=== PATIENT | female | born 1965 ===

== ENCOUNTER 2018-12-19 12:05 | Emergency (ER) | payer OTHER ==
--- NOTE | 2018-12-19 12:23 | EDM.PDOC ---
ED HPI GENERAL MEDICAL PROBLEM - General Stated Complaint: EXPOSURE Time Seen by Provider: 12/19/18 12:16 Source of Information: Reports: Patient, EMS History Limitations: Reports: Altered Mental Status - History of Present Illness INITIAL COMMENTS - FREE TEXT/NARRATIVE: pt [place] by low enforcement , after she was found there by a stranger wondering barefooted in mud , on arrival pt is alert and oriented but appear in consistent and at times delusional and agitated, pt is states that she is from the [facility] and was heading to [place] as she got car trouble in our area, she left her car and went walking to try to get help, states since last night she has been wondering around to find help but was unsuccessful, she is not sure why she is barefooted, denies loss of conscious or any assault or injuries, pt has expressed to law enforcement that she is running away from an evil person and here she has repeatedly spoke about demeans speaking to her and controlling her. pt c/o bilateral feet pain and denies any other associated sx. pt denies any significant morbidities including any mental illness, states she has been living by her self for 25 years and that she has never been employed. pt denies any drug or alcohol use. - Related Data Allergies Allergy/AdvReac Type Severity Reaction Status Date / Time hydromorphone [From Dilaudid] Allergy Cannot Verified 12/19/18 13:59 Remember paroxetine Allergy Cannot Verified 12/19/18 13:59 Remember Sulfa (Sulfonamide Allergy Cannot Verified 12/19/18 13:59 Antibiotics) Remember ED ROS GENERAL - Review of Systems Review Of Systems: See Below Constitutional: Denies: Fever, Chills HEENT: Reports: No Symptoms Respiratory: Reports: No Symptoms Cardiovascular: Reports: No Symptoms GI/Abdominal: Reports: No Symptoms Musculoskeletal: Reports: Other (feet pain). Denies: Neck Pain, Muscle Stiffness Skin: Reports: No Symptoms Neurological: Reports: No Symptoms Psychiatric: Reports: Confusion ED EXAM, GENERAL - Physical Exam Exam: See Below Exam Limited By: Altered Mental Status General Appearance: Alert, Mild Distress, Moderate Distress Eye Exam: Bilateral Eye: Normal Inspection Ear Exam: Bilateral Ear: TM normal Nose: Normal Inspection, Normal Mucosa Throat/Mouth: Normal Inspection, Normal Oropharynx Head: Atraumatic, Normocephalic Neck: Normal Inspection, Supple, Non-Tender Respiratory/Chest: No Respiratory Distress, Lungs Clear Cardiovascular: Normal Peripheral Pulses, Regular Rate, Rhythm, No Murmur GI/Abdominal: Normal Bowel Sounds, Soft, Non-Tender Back Exam: Normal Inspection Extremities: Other (feet/ legs are very dirty / muddy and cold, Cap refil time at her feet/ toes is still nl . there is a 1X2 cm spot at planter side of left foot that apear erythematic and likely secondary to frostbite. ) Neurological: Alert, CN II-XII Intact Skin Exam: Cool. No: Cyanosis Course - Vital Signs Text/Narrative:: vitals/ temp are stable/nl since presentation, pt remained cooperative here for the most part , but continued with delusions and occasional bursts of anger on staff , no medical or physical intervention was needed. she was hydrated with warm fluids and provided with warm blankets on arrival. pt is experiencing acute episode of psychosis , i do not find her in any way safe for discharge or out-patient mng , no family and no support that is available at this time. hence a hold was signed , and mental health are being contacted for placement. labs were reviewed and are unremarkable except for mild elevation with her WBC , there are no signs of any overt infectious process at this time. pt has a very mild nair bite injury at planter side of left foot and supportive mng was recommended for this. Nurses note were reviewed. pt care will be handed to Dr Chavis at time of shift change while still awaiting placement. - Orders/Labs/Meds Orders: Active Orders 24 hr Category Date Time Status EKG Documentation Completion [RC] ASDIRECTED Care 12/19/18 12:30 Active Sodium Chloride 0.9% [Normal Saline] 1,000 ml Med 12/19/18 12:29 Active IV .BOLUS Sodium Chloride 0.9% [Saline Flush] Med 12/19/18 13:00 Active 10 ml FLUSH ASDIRECTED PRN Peripheral IV Insertion Adult [OM.PC] Routine Oth 12/19/18 13:00 Ordered EKG 12 Lead [EK] Routine Ther 12/19/18 12:29 Ordered Medication Orders Sodium Chloride (Normal Saline) 1,000 mls @ 999 drops/hr IV .BOLUS ONE Stop: 12/20/18 03:29 Last Admin: 12/19/18 13:15 Dose: 999 drops/hr Sodium Chloride (Saline Flush) 10 ml FLUSH ASDIRECTED PRN PRN Reason: Keep Vein Open Labs: Laboratory Tests 12/19/18 12/19/18 12/19/18 Range/Units 12:40 12:40 12:40 WBC 15.3 H (4.5-12.0) X10-3/uL RBC 5.82 H (3.23-5.20) x10(6)uL Hgb 16.4 H (11.5-15.5) g/dL Hct 48.7 (30.0-51.3) % MCV 83.6 (80-96) fL MCH 28.1 (27.7-33.6) pg MCHC 33.6 (32.2-35.4) g/dL RDW 13.2 (11.5-15.5) % Plt Count 415 H (125-369) X10(3)uL MPV 6.7 L (7.4-10.4) fL Neut % (Auto) 79.0 (46-82) % Lymph % (Auto) 14.2 (13-37) % [place] % (Auto) 6.0 (4-12) % Eos % (Auto) 0 L (1.0-5.0) % Baso % (Auto) 1 (0-2) % Neut # (Auto) 12.1 H (1.6-8.3) # Lymph # (Auto) 2.2 (0.6-5.0) # [place] # (Auto) 0.9 (0.0-1.3) # Eos # (Auto) 0.0 (0.0-0.8) # Baso # (Auto) 0.1 (0.0-0.2) # Sodium 137 (135-145) mmol/L Potassium 3.6 (3.5-5.3) mmol/L Chloride 98 L (100-110) mmol/L Carbon Dioxide 26 (21-32) mmol/L BUN 6 L (7-18) mg/dL Creatinine 0.7 (0.55-1.02) mg/dL Est Cr Clr Drug Dosing TNP Estimated GFR (MDRD) > 60 (>60) BUN/Creatinine Ratio 8.6 L (9-20) Glucose 93 (80-116) mg/dL Calcium 9.7 (8.6-10.2) mg/dL Total Bilirubin 0.7 (0.1-1.3) mg/dL AST 28 H (5-25) IU/L ALT 43 H (12-36) U/L Alkaline Phosphatase 102 (56-112) IU/L Troponin I < 0.017 L (<0.017-0.056) ng/mL Total Protein 8.1 H (6.0-8.0) g/dL Albumin 4.1 (3.5-5.2) g/dL Globulin 4.0 g/dL Albumin/Globulin Ratio 1.0 TSH, Ultra Sensitive (0.36-3.74) IU/mL Urine Color (YELLOW) Urine Appearance (CLEAR) Urine pH (5.0-6.5) Ur Specific [place] (1.010-1.025) Urine Protein (NEGATIVE) mg/dL Urine Glucose (UA) (NORMAL) mg/dL Urine Ketones (NEGATIVE) mg/dL Urine Occult Blood (NEGATIVE) Urine Nitrite (NEGATIVE) Urine Bilirubin (NEGATIVE) Urine Urobilinogen (NEGATIVE) mg/dL Ur Leukocyte Esterase (NEGATIVE) Urine RBC (0-5) Urine WBC (0-5) Ur Squamous Epith Cells (NS,R,O) Urine Opiates Screen (NEGATIVE) Ur Oxycodone Screen (NEGATIVE) Ur Propoxyphene Screen (NEGATIVE) Ur Barbituates Screen (NEGATIVE) Ur Tricyclics Screen (NEGATIVE) Ur Phencyclidine Scrn (NEGATIVE) Ur Amphetamine Screen (NEGATIVE) Urine MDMA Screen (NEGATIVE) U Benzodiazepines Scrn (NEGATIVE) U Cocaine Metab Screen (NEGATIVE) U Marijuana (THC) Screen (NEGATIVE) Ethyl Alcohol (<0.03) % 12/19/18 12/19/18 12/19/18 Range/Units 12:40 13:11 13:11 WBC (4.5-12.0) X10-3/uL RBC (3.23-5.20) x10(6)uL Hgb (11.5-15.5) g/dL Hct (30.0-51.3) % MCV (80-96) fL MCH (27.7-33.6) pg MCHC (32.2-35.4) g/dL RDW (11.5-15.5) % Plt Count (125-369) X10(3)uL MPV (7.4-10.4) fL Neut % (Auto) (46-82) % Lymph % (Auto) (13-37) % [place] % (Auto) (4-12) % Eos % (Auto) (1.0-5.0) % Baso % (Auto) (0-2) % Neut # (Auto) (1.6-8.3) # Lymph # (Auto) (0.6-5.0) # [place] # (Auto) (0.0-1.3) # Eos # (Auto) (0.0-0.8) # Baso # (Auto) (0.0-0.2) # Sodium (135-145) mmol/L Potassium (3.5-5.3) mmol/L Chloride (100-110) mmol/L Carbon Dioxide (21-32) mmol/L BUN (7-18) mg/dL Creatinine (0.55-1.02) mg/dL Est Cr Clr Drug Dosing Estimated GFR (MDRD) (>60) BUN/Creatinine Ratio (9-20) Glucose (80-116) mg/dL Calcium (8.6-10.2) mg/dL Total Bilirubin (0.1-1.3) mg/dL AST (5-25) IU/L ALT (12-36) U/L Alkaline Phosphatase (56-112) IU/L Troponin I (<0.017-0.056) ng/mL Total Protein (6.0-8.0) g/dL Albumin (3.5-5.2) g/dL Globulin g/dL Albumin/Globulin Ratio TSH, Ultra Sensitive 2.08 (0.36-3.74) IU/mL Urine Color Yellow (YELLOW) Urine Appearance Clear (CLEAR) Urine pH 6.5 (5.0-6.5) Ur Specific [place] 1.010 (1.010-1.025) Urine Protein Negative (NEGATIVE) mg/dL Urine Glucose (UA) Normal (NORMAL) mg/dL Urine Ketones 50 H (NEGATIVE) mg/dL Urine Occult Blood Negative (NEGATIVE) Urine Nitrite Negative (NEGATIVE) Urine Bilirubin Negative (NEGATIVE) Urine Urobilinogen Normal (NEGATIVE) mg/dL Ur Leukocyte Esterase Negative (NEGATIVE) Urine RBC Not seen (0-5) Urine WBC 0-5 (0-5) Ur Squamous Epith Cells Rare (NS,R,O) Urine Opiates Screen Negative (NEGATIVE) Ur Oxycodone Screen Negative (NEGATIVE) Ur Propoxyphene Screen Negative (NEGATIVE) Ur Barbituates Screen Negative (NEGATIVE) Ur Tricyclics Screen Negative (NEGATIVE) Ur Phencyclidine Scrn Negative (NEGATIVE) Ur Amphetamine Screen Negative (NEGATIVE) Urine MDMA Screen Negative (NEGATIVE) U Benzodiazepines Scrn Negative (NEGATIVE) U Cocaine Metab Screen Negative (NEGATIVE) U Marijuana (THC) Screen Negative (NEGATIVE) Ethyl Alcohol < 0.03 (<0.03) % Meds: Medications Generic Name Dose Route Start Last Admin Trade Name Freq PRN Reason Stop Dose Admin Sodium Chloride 1,000 mls @ 999 drops/hr 12/19/18 12:29 12/19/18 13:15 Normal Saline IV 12/20/18 03:29 999 drops/hr .BOLUS ONE Administration Sodium Chloride 10 ml 12/19/18 13:00 Saline Flush FLUSH ASDIRECTED PRN Keep Vein Open Discontinued Medications Generic Name Dose Route Start Last Admin Trade Name Freq PRN Reason Stop Dose Admin Morphine Sulfate 4 mg 12/19/18 12:29 12/19/18 13:15 Morphine IVPUSH 12/19/18 12:30 4 mg ONETIME ONE Administration Departure - Departure Time of Disposition: 18:49 Disposition: DC/Tfer to Psych Hosp/Unit [facility] Clinical Impression: Acute psychosis - Discharge Information Referrals: PCP,None [Ordering Only Provider] - - My Orders Last 24 Hours: My Active Orders 12/19/18 12:29 Sodium Chloride 0.9% [Normal Saline] 1,000 ml IV .BOLUS EKG 12 Lead [EK] Routine 12/19/18 12:30 EKG Documentation Completion [RC] ASDIRECTED 12/19/18 13:00 Sodium Chloride 0.9% [Saline Flush] 10 ml FLUSH ASDIRECTED PRN Peripheral IV Insertion Adult [OM.PC] Routine - Assessment/Plan Last 24 Hours: My Active Orders 12/19/18 12:29 Sodium Chloride 0.9% [Normal Saline] 1,000 ml IV .BOLUS EKG 12 Lead [EK] Routine 12/19/18 12:30 EKG Documentation Completion [RC] ASDIRECTED 12/19/18 13:00 Sodium Chloride 0.9% [Saline Flush] 10 ml FLUSH ASDIRECTED PRN Peripheral IV Insertion Adult [OM.PC] Routine
[2018-12-19] MEDS ORDERED: Sodium Chloride 0.9% 1,000 ML IV ONE (12:29)
[2018-12-19] MEDS ORDERED: Morphine 2 MG/ML Syringe IVPUSH ONE (12:29)
[2018-12-19] MEDS ORDERED: Sodium Chloride 0.9% 10 ML Syringe FLUSH PRN (13:00)
--- NOTE | 2018-12-19 16:28 | CT ---
INDICATION: Altered mental status. CT HEAD WITHOUT CONTRAST: Spiral 3.75 mm axial sections were obtained through the brain without contrast with sagittal and coronal reconstructions, 12/19/18 - no comparisons. Total exam DLP = 1,244.99 mGy-cm. No shift of midline structures, ventricular abnormalities, or significant abnormal areas of identified - no bleeding site or hematoma was suggested - no acute intracranial abnormality was suggested. Calcifications are noted in the internal carotid arteries. There are some calcifications in the basal ganglia, which are noncontributory. No other abnormal areas of density were identified. Cranium appears to be intact. Paranasal sinuses and mastoid air cells appear to be well-aerated. The orbits appear to be intact. IMPRESSION: 1. No acute intracranial abnormality. 2. Cerebrovascular disease, as evidence by internal carotid artery calcifications. If symptoms persist - if occult intracranial abnormality is suspected clinically , re-examination with IV contrast and/or MRI is recommended for further evaluation. Report was called to Dr. Hess at 1422 hours on 12/19/18. [facility]
== END 2018-12-19 20:20 ==
LOC: FB.ED 12:05
DX: F23 Brief psychotic disorder (principal); Z88.2 Allergy status to sulfonamides; Z88.5 Allergy status to narcotic agent; Z88.8 Allergy status to other drugs, medicaments and biological substances
CPT/HCPCS: 36415; 70450; 80053; 80305; 80320; 81001; 82550; 84443; 84484; 85025; 96361; 96374; 99285; J2270; J7030; 93010; G0480